=== PATIENT | male | born 1995 | race American Indian/Alaskan Native ===

== ENCOUNTER 2017-03-27 04:40 | Emergency (ER) | payer MEDICAID ==
[2017-03-27 04:50] VITALS: BP 142/90
[2017-03-27] MEDS ORDERED: PEPCID PO ONE (06:31)
[2017-03-27] MEDS ORDERED: DECADRON IM ONE (06:31)
[2017-03-27] MEDS ORDERED: BENADRYL PO ONE (06:31)
[2017-03-27 06:52] LABS: Basophils % (Auto) 0.5 % (0.0-1.8); Hematocrit 45.4 % (35.5-45.6); Hemoglobin 15.4 gm/dl (11.8-15.2); Mean Corpuscular HGB Conc 34 % (32-34); Mean Corpuscular Hemoglobin 31 pg (28-32); Mean Corpuscular Volume 92 fl (84-94); Red Blood Count 4.95 M/mm3 (3.65-5.03); Red Cell Distribution Width 13.1 % (13.2-15.2); White Blood Count 9.3 K/mm3 (4.5-11.0)
[2017-03-27 06:53] LABS: Platelet Count 237 K/mm3 (140-440)
[2017-03-27 07:09] LABS: Anion Gap 18 mmol/L; Blood Urea Nitrogen 14 mg/dL (9-20); Calcium 9.7 mg/dL (8.4-10.2); Carbon Dioxide 27 mmol/L (22-30); Chloride 98.3 mmol/L (98-107); Glucose 92 mg/dL (75-100); Potassium 3.5 mmol/L (3.6-5.0); Sodium 140 mmol/L (137-145)
[2017-03-27] MEDS ORDERED: BICILLIN L-A IM ONE (08:12)
--- NOTE | 2017-03-27 08:14 | Emergency Department Report ---
ED Rash HPI - HPI Chief Complaint: Skin Rash Stated Complaint: RASH Time Seen by Provider: 03/27/17 07:20 Duration: 1 month Location: Chest, Back, Abdomen, Upper Extremities Suspected Cause: Other (syphylis) Rash Symptoms: Yes Itching, Yes Peeling, No Facial Swelling, No Tongue/Oral Swelling, No Breathing Difficulties, No Choking Sensation, No Wheezing/Dyspnea, No Blistering, No Fever, No Lightheaded, No Malaise, No Myalgias Severity: severe Other History: Patient is a 22 y/o male with h/o syphyllis eho presents due diffuse rash allover torso upper and lower extremities x 1 month. Patient states that he was diagnosed with syphyllin 7 months ago and treated, he states that the rash looks similar. Patient denies any fever or chills. ED Review of Systems ROS: Stated complaint: RASH Other details as noted in HPI Comment: All other systems reviewed and negative Constitutional: no symptoms reported. denies: chills, fever Respiratory: no symptoms reported. denies: shortness of breath, SOB with exertion Cardiovascular: denies: chest pain Gastrointestinal: denies: abdominal pain, nausea, vomiting Genitourinary: other (penile discharge). denies: dysuria Neurological: denies: headache ED Past Medical Hx - Past Medical History Previous Medical History?: No - Surgical History Past Surgical History?: No - Social History Smoking Status: Light Tobacco Smoker Substance Use Type: Alcohol - Medications Home Medications: Home Medications Medication Instructions Recorded Confirmed Last Taken Type Triamcinolone 0.1% [Kenalog 0.1% 1 applic TP TID #1 tube 03/27/17 Unknown Rx CREAM] diphenhydrAMINE [Benadryl CAP] 25 mg PO Q6HR PRN #20 capsule 03/27/17 Unknown Rx Rash Exam - Exam General: Vital signs noted. No distress. Alert and acting appropriately. Skin: Yes Maculopapular Rash, Yes Erythema, Yes Other (scaly and dry), No Urticarial Rash, No Morbilliform rash, No Bulla(e), No Excoriations, No Weeping , No Tenderness, No Edema, No Encrustations Other: Positive: Neurologic Normal, Musculoskeletal Normal (patient had macular and scaly plaque rash on the abdomen, back, lower extermities. patient alos had scaly rash on the bilateral palms) ED Course Vital Signs 03/27/17 04:41 Temperature 98.1 F Pulse Rate 73 Respiratory 18 Rate Blood Pressure 142/90 [Right] O2 Sat by Pulse 96 Oximetry ED Medical Decision Making - Lab Data Result diagrams: 03/27/17 06:38 03/27/17 06:38 - Medical Decision Making Patient was in NAD, patient had scaly plaque rash on his bilateral palms, torso and lower extremities. the rash on his upper extremities was macular and diffuse with no plaques. Patient also had a macular rash on his penis. no visible penile discharge. patient was treated for syphilis in the ER, RPR is pending. Patient was given information to follow up with the health department for HIV screening and further treatment. Patient was prescribed triamcinolone cream and benadryl for itching. - Differential Diagnosis psoriasis, syphilis, tinea corporis Critical care attestation.: If time is entered above; I have spent that time in minutes in the direct care of this critically ill patient, excluding procedure time. ED Disposition Clinical Impression: Rash of body Disposition: DC-01 TO HOME OR SELFCARE Is pt being admited?: No Does the pt Need Aspirin: No Condition: Good Instructions: Syphilis (ED), Psoriasis (ED) Additional Instructions: apply triamcinolone on rash. Folloe up with the help department for HIV screening. Follow up with the provided knocker out for further evaluation. Prescriptions: diphenhydrAMINE [Benadryl CAP] 25 mg PO Q6HR PRN #20 capsule PRN Reason: Itching Triamcinolone 0.1% [Kenalog 0.1% CREAM] 1 applic TP TID #1 tube Referrals: JUAN CARLOS SPEARS MD [Staff Physician] - 3-5 Days [facility] [Outside] - 3-5 Days Time of Disposition:
== END 2017-03-27 08:54 | disposition home or self-care (01) ==
LOC: ED 04:40
DX: R21 Rash and other nonspecific skin eruption (principal); F17.200 Nicotine dependence, unspecified, uncomplicated
CPT/HCPCS: 36415; 80048; 85025; 86592; 87040; 96372; 99283; J0561; J1100

== ENCOUNTER 2017-07-16 08:56 | Emergency (ER) | payer MEDICAID ==
[2017-07-16 09:36] VITALS: BP 122/79
--- NOTE | 2017-07-16 11:46 | Emergency Department Report ---
ED Rash HPI - HPI Chief Complaint: Skin Rash Stated Complaint: PSORIASIS Time Seen by Provider: 07/16/17 11:07 Duration: years Location: Other (diffuse) Suspected Cause: Unknown Rash Symptoms: Yes Itching, No Facial Swelling, No Tongue/Oral Swelling, No Breathing Difficulties, No Choking Sensation, No Wheezing/Dyspnea, No Peeling, No Blistering, No Fever, No Lightheaded, No Malaise, No Myalgias Severity: mild Other History: This is a 22-year-old male nontoxic, well nourished in appearance , no acute signs of distress presents to the ED with c/o of chronic intermittent outbreak of psoriasis. Patient describes symptoms as itching with erythema and scaly and dry. Patient stated was here on April and was treated with "cream" and helped patient but now symptoms returned. Patient denies any fever, chills, nausea, vomiting, chest pain, shortness of breath, numbness, tingling, abdominal pain. Patient denies any drug allergies or PMH. ED Review of Systems ROS: Stated complaint: PSORIASIS Other details as noted in HPI Constitutional: denies: chills, fever Eyes: denies: eye pain, eye discharge, vision change ENT: denies: ear pain, throat pain Respiratory: denies: cough, shortness of breath, wheezing Cardiovascular: denies: chest pain, palpitations Endocrine: no symptoms reported Gastrointestinal: denies: abdominal pain, nausea, diarrhea Genitourinary: denies: urgency, dysuria Musculoskeletal: denies: back pain, joint swelling, arthralgia Skin: rash, pruritus. denies: lesions Neurological: denies: headache, weakness, paresthesias Psychiatric: denies: anxiety, depression Hematological/Lymphatic: denies: easy bleeding, easy bruising ED Past Medical Hx - Past Medical History Previous Medical History?: No - Surgical History Past Surgical History?: No - Social History Smoking Status: Current Every Day Smoker Substance Use Type: Alcohol - Medications Home Medications: Home Medications Medication Instructions Recorded Confirmed Last Taken Type Triamcinolone 0.1% [Kenalog 0.1% 1 applic TP TID #1 tube 03/27/17 Unknown Rx CREAM] diphenhydrAMINE [Benadryl CAP] 25 mg PO Q6HR PRN #20 capsule 03/27/17 Unknown Rx Triamcinolone 0.1% [Kenalog 0.1% 1 applic TP TID #1 tube 07/16/17 Unknown Rx CREAM] diphenhydrAMINE [Benadryl CAP] 25 mg PO Q6HR PRN #30 capsule 07/16/17 Unknown Rx Rash Exam - Exam General: Vital signs noted. No distress. Alert and acting appropriately. GENERAL: The patient is a well-developed, well-nourished female in no apparent distress. Patient is alert and acting appropriately for age. Alert and oriented 3, no apparent distress, normal gait, atraumatic. HEENT: Head is normocephalic and atraumatic. PERRL, Extraocular muscles are intact. Pupils are equal, round, and reactive to light and accommodation. Nares appeared normal. Mouth is well hydrated and without lesions. Mucous membranes are moist. Posterior pharynx clear of any exudate or lesions. Mouth is well hydrated and without lesions. Tonsils not erythematous or swollen. Uvula midline. Tongue elevated. Mucous members are moist. Posterior pharynx clear, no exudate or lesions. Patent airways. NECK: Supple. No carotid bruits. No lymphadenopathy or thyromegaly.nontender. No meningitic signs are noted. LUNGS: Clear to auscultation. Non labor breathing. No intercostal retractions. Symmetrical with respiration, no wheezing, no rales, or crackles. HEART: Regular rate and rhythm without murmur, rubs or gallops. No reproducible. S1, S2 present, regular rate and rhythm without murmur, no rubs, no gallops. ABDOMEN: Soft, nontender, and nondistended. Positive bowel sounds. No hepatosplenomegaly was noted. No guarding or rebound tenderness, negative epigastric bruit. Negative psoas sign, negative green sign, negative McBurneys sign EXTREMITIES: Without any cyanosis, clubbing, rash, lesions or edema. Peripheral pulses intact. Capillary refill less than 2 seconds. Full range of motion bilaterally. NEUROLOGIC: Cranial nerves II through XII are grossly intact. Alert and oriented x 3. Normal gait. Symmetrical strength and sensation. Reflexes 2+ throughout. Cerebellar testing normal. GCS score of 15. PSYCHIATRIC: Normal affect with no suicidal or homicidal ideations. Skin: Macular papular rash with erythema and scaly and dry diffuse throughout the body. HEENT: No Periorbital Edema, No Conjuctival Injection, No Chemosis, No Perioral Edema, No Tongue Edema, No Uvular Edema, No Compromised Airway, No Drooling Lungs: Yes Good Air Exchange (Normal Breath Sounds), No Wheezes, No Ronchi, No Stridor, No Cough, No Labored Respirations, No Retractions, No Use of Accessory Muscles, No Other Abnormal Lung Sounds Heart: Yes Regular, No Murmur Skin: Yes Maculopapular Rash, Yes Erythema, Yes Other (scaly and dry), No Urticarial Rash, No Morbilliform rash, No Bulla(e), No Excoriations, No Weeping , No Tenderness, No Edema, No Encrustations Other: Positive: Abdomen Normal, Neurologic Normal, Musculoskeletal Normal ED Course Vital Signs 07/16/17 09:34 Temperature 98.1 F Pulse Rate 72 Respiratory 16 Rate Blood Pressure 122/79 O2 Sat by Pulse 99 Oximetry - Reevaluation(s) Reevaluation #1: 07/16/17 11:46 Patient is speaking in full sentences with no signs of distress noted. ED Medical Decision Making - Medical Decision Making This is a 22-year-old male that presents with psoriasis. Patient is stable and was examined by me. Patient received Solu-Medrol 125 mg IM and ED. Patient recently received Kenalog 01% and Benadryl with patient the symptoms has resolved so I will treat patient for the same. Patient was referred to follow- up with a rn care transition. At time time of discharge, the patient does not seem toxic or ill in appearance. No acute signs of distress noted. Patient agrees to discharge treatment plan of care. No further questions noted by the patient. Critical care attestation.: If time is entered above; I have spent that time in minutes in the direct care of this critically ill patient, excluding procedure time. ED Disposition Clinical Impression: Psoriasis Disposition: DC-01 TO HOME OR SELFCARE Is pt being admited?: No Does the pt Need Aspirin: No Condition: Stable Instructions: Psoriasis (ED), Diphenhydramine (By mouth) Additional Instructions: Follow-up with a primary care doctor/rn care transition in 3-5 days or if symptoms worsen and continue return to emergency room as soon as possible. Do not operate any machinery while taking Benadryl due to drowsiness Prescriptions: diphenhydrAMINE [Benadryl CAP] 25 mg PO Q6HR PRN #30 capsule PRN Reason: Itching Triamcinolone 0.1% [Kenalog 0.1% CREAM] 1 applic TP TID #1 tube Referrals: PRIMARY CARE, [Primary Care Provider] - 3-5 Days MATA MOHR MD [Staff Physician] - 3-5 Days EPHRAIM DESOUZA MD [Staff Physician] - 3-5 Days [facility] [Outside] - 3-5 Days [facility] [Outside] - 3-5 Days Forms: Work/School Release Form(ED)
== END 2017-07-16 13:13 | disposition home or self-care (01) ==
LOC: ED 08:56
DX: L40.9 Psoriasis, unspecified (principal); F17.200 Nicotine dependence, unspecified, uncomplicated
CPT/HCPCS: 96372; 99281; J2930

== ENCOUNTER 2018-02-25 22:19 | Emergency (ER) | payer MEDICAID ==
[2018-02-25 22:34] VITALS: BP 129/63
== END 2018-02-25 23:35 | disposition left against medical advice (07) ==
LOC: ED 22:19
DX: R21 Rash and other nonspecific skin eruption (principal); Z53.21 Procedure and treatment not carried out due to patient leaving prior to being seen by health care provider

== ENCOUNTER 2019-05-15 22:53 | Emergency (ER) | payer MEDICAID ==
[2019-05-15 23:10] VITALS: BP 127/86
--- NOTE | 2019-05-16 01:45 | XRay Report ---
CHEST 1 VIEW INDICATION / CLINICAL INFORMATION: cough. COMPARISON: None available. FINDINGS: SUPPORT DEVICES: None. HEART / MEDIASTINUM: No significant abnormality. LUNGS / PLEURA: No significant pulmonary or pleural abnormality. No pneumothorax. ADDITIONAL FINDINGS: No significant additional findings. IMPRESSION: 1. No significant change Signer Name: Manuel Wagner MD Signed: 05/16/2019 1:40 AM Workstation Name: [id number]
--- NOTE | 2019-05-16 01:48 | Emergency Department Report ---
HPI - General Chief Complaint: Upper Respiratory Infection Time Seen by Provider: 05/16/19 01:00 - [facility] HPI: Room 32 The patient is a 24-year-old male presenting with a chief complaint of cough. Patient states he's had a cough for approximately 1-2 weeks. Patient states his cough has been occasionally productive of clear sputum. Patient denies history of fever or sore throat. Patient states he initially had rhinorrhea at the onset but that has since resolved. ED Past Medical Hx - Past Medical History Previous Medical History?: No - Surgical History Past Surgical History?: No - Family History Family history: no significant - Social History Smoking Status: Current Every Day Smoker (1/7 per day) Substance Use Type: None (denies illicit drug use), Alcohol (occasional) - Medications Home Medications: Home Medications Medication Instructions Recorded Confirmed Last Taken Type Triamcinolone 0.1% [Kenalog 0.1% 1 applic TP TID #1 tube 03/27/17 Unknown Rx CREAM] diphenhydrAMINE [Benadryl CAP] 25 mg PO Q6HR PRN #20 capsule 03/27/17 Unknown Rx Triamcinolone 0.1% [Kenalog 0.1% 1 applic TP TID #1 tube 07/16/17 Unknown Rx CREAM] diphenhydrAMINE [Benadryl CAP] 25 mg PO Q6HR PRN #30 capsule 07/16/17 Unknown Rx Benzonatate [Tessalon Perles] 100 mg PO Q8HR #30 capsule 05/16/19 Unknown Rx ED Review of Systems ROS: Stated complaint: COUGH Other details as noted in HPI Constitutional: denies: fever Eyes: denies: eye pain ENT: denies: throat pain Respiratory: cough Cardiovascular: denies: chest pain Endocrine: no symptoms reported Gastrointestinal: denies: abdominal pain Genitourinary: denies: dysuria Musculoskeletal: denies: back pain Neurological: denies: headache Physical Exam - Physical Exam Vital Signs: Vital Signs 05/15/19 23:09 Temperature 98.1 F Pulse Rate 99 H Respiratory 18 Rate Blood Pressure 127/86 O2 Sat by Pulse 95 Oximetry Physical Exam: GENERAL: The patient is well-developed well-nourished male sitting in chair not appearing to be in acute distress. [] HEENT: Normocephalic. Atraumatic. Extraocular motions are intact. Patient has moist mucous membranes. NECK: Supple. No meningitic signs are noted. There is no stridor CHEST/LUNGS: Clear to auscultation. There is no respiratory distress noted. HEART/CARDIOVASCULAR: Regular. There is no tachycardia. There is no gallop rub or murmur. ABDOMEN: Abdomen is soft, nontender. Patient has normal bowel sounds. There is no abdominal distention. SKIN: There is no rash. There is no edema. There is no diaphoresis. NEURO: The patient is awake, alert, and oriented. The patient is cooperative. The patient has normal speech MUSCULOSKELETAL: There is no evidence of acute injury. ED Course Vital Signs 05/15/19 23:09 Temperature 98.1 F Pulse Rate 99 H Respiratory 18 Rate Blood Pressure 127/86 O2 Sat by Pulse 95 Oximetry ED Medical Decision Making - Radiology Data Radiology results: report reviewed (chest x-ray), image reviewed (chest x-ray) interpreted by me: Chest x-ray-no focal filtrate, no pneumothorax - Differential Diagnosis bronchitis, URI Critical care attestation.: If time is entered above; I have spent that time in minutes in the direct care o f this critically ill patient, excluding procedure time. ED Disposition Clinical Impression: Cough Disposition: DC-01 TO HOME OR SELFCARE Is pt being admited?: No Does the pt Need Aspirin: No Condition: Stable Instructions: Chronic Cough (ED) Prescriptions: Benzonatate [Tessalon Perles] 100 mg PO Q8HR #30 capsule Referrals: PRIMARY CARE, [Primary Care Provider] - 3-5 Days [facility] [Outside] - 3-5 Days Time of Disposition: 01:47
== END 2019-05-16 02:19 | disposition home or self-care (01) ==
LOC: ED 22:53
DX: R05 Cough (principal); F17.200 Nicotine dependence, unspecified, uncomplicated
CPT/HCPCS: 71045